=== PATIENT | female | born 1980 | race African-American/Black ===

== ENCOUNTER 2024-07-12 00:03 | Emergency (ER) | payer SELFPAY ==
[~2024-07-12] VITALS: Ht 165.1 cm; Wt 77.9 kg
[2024-07-12 00:08] VITALS: O2SAT 99
[2024-07-12 00:37] LABS: BASOPHILS % 0.8 % (0.0-2.0); EOSINOPHILS % 1.4 % (0.0-5.0); HEMATOCRIT. 35.8 % (36.0-48.0); HEMOGLOBIN. 11.7 g/dL (12.0-16.0); LYMPHOCYTES % 45.1 % (20.0-50.0); MEAN CORPUSCULAR HEMOGLOBIN 28.2 pg (28.0-32.0); MEAN CORPUSCULAR HGB CONC 32.7 g/dL (31.0-37.0); MEAN CORPUSCULAR VOLUME 86.3 fL (81.0-99.0); MEAN PLATELET VOLUME 7.2 fl (7.4-10.4); MONOCYTES % 7.1 % (2.0-8.0); NEUTROPHILS % 45.6 % (40.0-76.0); PLATELET 442 x1000/uL (130-400); RED BLOOD CELL COUNT 4.15 mill/uL (4.2-5.4); RED CELL DISTRIBUTION WIDTH 14.1 % (11.6-14.6); WHITE BLOOD COUNT 9.6 x1000/uL (4.5-11.0)
[2024-07-12 00:42] LABS: CLARITY URINE CLEAR (CLEAR); COLOR URINE YELLOW (YELLOW); GLUCOSE URINE NEGATIVE (NEGATIVE); KETONES URINE NEGATIVE (NEGATIVE); LEUKOCYTE ESTERASE URINE TRACE (NEGATIVE); NITRITE URINE NEGATIVE (NEGATIVE); OCCULT BLOOD URINE 3+ (NEGATIVE); PROTEIN URINE NEGATIVE (NEGATIVE); SPECIFIC GRAVITY URINE 1.019 (1.005-1.030)
[2024-07-12 00:48] LABS: CHLORIDE 104 mEq/L (98-107); POTASSIUM 3.4 mEq/L (3.5-5.1); SODIUM 139 mEq/L (136-145)
[2024-07-12 00:49] LABS: CALCIUM 8.9 mg/dL (8.7-10.4); CARBON DIOXIDE 25 mEq/L (21-32)
[2024-07-12 00:54] LABS: CREATININE 0.9 mg/dL (0.6-1.0); GLUCOSE 99 mg/dL (70-105); UREA NITROGEN BLOOD 12 mg/dL (9-23)
[2024-07-12 01:00] LABS: B-HCG QUANTITATIVE < 1 mIU/mL (<6)
[2024-07-12 01:04] LABS: BACTERIA URINE NONE SEEN; RBC URINE 50-100 /hpf (0-2); SQUAMOUS EPITHELIAL CELL URINE 2+ /lpf (RARE/1+); WBC URINE 0-2 /hpf (0-2)
[2024-07-12] MEDS ORDERED: NAPR-679 MT (01:40)
[2024-07-12] MEDS: ACETAMINOPHEN 325MG TABLET PO ONE (01:40)
[2024-07-12] MEDS: KETOROLAC 30MG/ML VIAL IM ONE (01:41)
[2024-07-12] MEDS: MORPHINE SULFATE 4 MG/ML INJ (FOR IV/IM USE) IM ONE (02:30)
[2024-07-12 03:04] VITALS: BP 144/87; PULSE 74; RESP 18; TEMP 36.7; O2SAT 97
== END 2024-07-12 03:05 | disposition home or self-care (01) ==
LOC: ER 00:03
DX: O03.9 Complete or unspecified spontaneous abortion without complication (principal); J45.909 Unspecified asthma, uncomplicated; Z3A.01 Less than 8 weeks gestation of pregnancy; Z79.899 Other long term (current) drug therapy
CPT/HCPCS: 99285; 76830; 76856; 80048; 81003; 84702; 85025; 86850; 86900; 86901; 36415; 96372; J1885; J2270